=== PATIENT | male | born 1970 | race Caucasian/White ===

== ENCOUNTER 2019-05-10 07:48 | Emergency (ER) | payer SELFPAY ==
[2019-05-10 08:23] LABS: ABSOLUTE NEUTROPHIL COUNT 12.16; HEMOGLOBIN 14.4 gm/dl (14.0-18.0); MEAN CORPUSCULAR HEMOGLOBIN 29.4 pg (27-33); MEAN CORPUSCULAR HGB CONC 32.7 g/dl (32-36); MEAN PLATELET VOLUME 9.2 fl (7.4-10.4); PLATELET COUNT 332 K/uL (130-400); RED BLOOD COUNT 4.89 M/uL (4.40-5.70); RED CELL DISTRIBUTION WIDTH 13.8 % (11.5-14.5); WHITE BLOOD COUNT W/O DIFF 13.5 K/uL (4.2-12.2)
[2019-05-10] MEDS ORDERED: LORAZEPAM 2 MG/ML VIAL IV ONE ×2 (08:23→08:24)
--- NOTE | 2019-05-10 08:23 | Emergency Department Record ---
History of Present Illness - General Chief Complaint: Seizures Stated Complaint: SEIZURE Time Seen by Provider: 05/10/19 08:02 Source: Patient, Family Mode of Arrival: Stretcher Limitations: No limitations - History of Present Illness Initial Comments: The patient is here by EMS with his due to having intermittent seizures since last evening. He has been having his petit mall seizures off and on during the evening and his states he may have stopped breathing at times. There has been no hx of any recent illnesses, fevers, chills, vomiting, diarrhea, or trauma. The patient has a LONG hx of seizures and does have an Epileptic specialist in [place] where he receives his care. There has been no recent medication changes or new medicines. MD Complaint: Seizure -: Awoke with symptoms Seizure History: Known seizure disorder - Related Data Home Medications Medication Instructions Recorded Confirmed Last Taken Amantadine HCl [Amantadine] 100 mg PO BID 05/10/19 05/10/19 05/09/19 Fluoxetine HCl [Prozac] 20 mg PO DAILY 05/10/19 05/10/19 05/09/19 Oxcarbazepine [Trileptal] 600 mg PO DAILY 05/10/19 05/10/19 05/09/19 Zonisamide 100 mg PO DAILY 05/10/19 05/10/19 05/09/19 Allergies Allergy/AdvReac Type Severity Reaction Status Date / Time topiramate [From Topamax] AdvReac BEHAVIORAL Verified 05/10/19 08:02 CHANGES Travel Screening - Travel/Exposure Within Last 30 Days Have you traveled within the last 30 days?: No - Travel/Exposure Within Last Year Have you traveled outside the [place] in the last year?: No - Additonal Travel Details Have you been exposed to anyone with a communicable illness?: No - Travel Symptoms Symptom Screening: Fatigue Review of Systems Constitutional: Denies: Chills, Fever Eyes: Denies: Eye discharge ENT: Denies: Congestion Respiratory: Denies: Cough, Dyspnea Cardiovascular: Denies: Arrhythmia Endocrine: Denies: Fatigue Gastrointestinal: Denies: Abdominal pain Genitourinary: Denies: Dysuria Musculoskeletal: Denies: Arthralgia Neurological: Reports: Seizure. Denies: Abnormal gait Past Medical History - SOCIAL HISTORY Smoking Status: Never smoker Alcohol Use: None Drug Use: None - RESPIRATORY Hx Respiratory Disorders: No - CARDIOVASCULAR Hx Cardio Disorders: No - NEURO Hx Neuro Disorders: Yes Hx Headaches: Yes Hx Seizures: Yes Comment:: interrmitant explosive disorder - GI Hx GI Disorders: No - Hx Genitourinary Disorders: No - ENDOCRINE Hx Endocrine Disorders: No - MUSCULOSKELETAL Hx Musculoskeletal Disorders: No - PSYCH Hx Psych Problems: Yes Hx Anxiety: Yes Hx Depression: Yes - HEMATOLOGY/ONCOLOGY Hx Hematology/Oncology Disorders: No Family Medical History Any Significant Family History?: No Physical Exam - General General Appearance: Alert, Oriented x3, Cooperative, No acute distress - Head Head exam: Atraumatic, Normocephalic - Eye Eye exam: Normal appearance, PERRL - ENT Throat exam: Normal inspection. negative: Tonsillar erythema, Tonsillar exudate - Neck Neck exam: Normal inspection, Full ROM. negative: Tenderness - Respiratory Respiratory exam: Normal lung sounds bilaterally. negative: Respiratory distress - Cardiovascular Cardiovascular Exam: Regular rate, Normal rhythm, Normal heart sounds - GI/Abdominal GI/Abdominal exam: Soft, Normal bowel sounds. negative: Tenderness - Extremities Extremities exam: Normal inspection, Full ROM, Normal capillary refill. negative: Tenderness - Neurological Neurological exam: Alert, Oriented X3. negative: Altered, Motor sensory deficit - Psychiatric Psychiatric exam: Flat affect. negative: Anxious Course Vital Signs 05/10/19 05/10/19 07:52 08:12 Temperature 98.7 F Pulse Rate 110 H Respiratory 18 Rate Blood Pressure 143/88 Pulse Ox 94 L - Reevaluation(s) Reevaluation #1: The patient did have a petit mal seizure here in the ER and it did resolve with a 1 mg Ativan dose. 05/10/19 08:46 Reevaluation #2: The patient is doing better at this time. He is no longer having seizures and is awake and talking. He denies any pain or discomfort and is answering questions normally. On exam he is oriented to name, age, bday and his 's name. His hand grasp is equal bilaterally. Due to the patient's extensive hx of seizures and with the fact his Epileptologist is in [place] at [facility] I do feel he should be transferred their. I did make multiple attempts to contact the physician who is Dr. Weaver but we have not been successful. I did discuss the case with Dr. Ba in the ER and she did accept the patient in an ER to ER transfer. 05/10/19 09:21 Medical Decision Making - Data Complexity MDM Data: Labs Ordered and/or Reviewed, EKG Ordered and/or Reviewed - Lab Data Result diagrams: 05/10/19 08:16 05/10/19 08:16 - EKG Data -: EKG Interpreted by Me EKG: No Acute Changes (Sinus tach at 110, O/W neg.) Disposition Disposition: Transfer Clinical Impression: Status epilepticus due to complex partial seizure Disposition: Acute Care Hospital Transfer Transfer To: [facility] in [place]. Reason For Transfer: Neurology Accepting Physician: [facility] Time Discussed w/Accepting Physician: 09:24 Condition: (2) Stable Forms: Patient Portal Access Time of Disposition: 09:25 Quality - Quality Measures Quality Measures: N/A - Blood Pressure Screening View Details: Yes Does Patient Have Any of the Following: No Blood Pressure Classification: Pre-Hypertensive BP Reading Systolic Measurement: 143 Diastolic Measurement: 88 Screening for High Blood Pressure: < Pre-Hypertensive BP, F/U Documented > [[id number]] Pre-Hypertensive Follow-up Interventions: Referral to alternative/primary care provider.
[2019-05-10 08:34] LABS: PLATELET ESTIMATE NORMAL (NORMAL)
[2019-05-10 08:36] LABS: BLOOD UREA NITROGEN 14 mg/dL (6-20); CREATININE 0.9 mg/dL (0.7-1.2); EST GLOMERULAR FILTRATION RATE > 60 mL/min
[2019-05-10 08:37] LABS: TOTAL PROTEIN 7.6 g/dL (6.6-8.7)
[2019-05-10 08:39] LABS: GLUCOSE,RANDOM 176 mg/dL (74-109)
[2019-05-10 08:42] LABS: ALB/GLOB RATIO 1.9 (1.1-1.8); ALKALINE PHOSPHATASE 103 U/L (40-129); ALT/SGPT 35 U/L (<41); AST/SGOT 17 U/L (10.0-50.0)
== END 2019-05-10 09:34 | disposition short-term general hospital (02) ==
LOC: ER 07:48
DX: G40.211 Localization-related (focal) (partial) symptomatic epilepsy and epileptic syndromes with complex partial seizures, intractable, with status epilepticus (principal)
CPT/HCPCS: 80053; 80320; 85027; 93005; 93010; 96374; 99285